=== PATIENT | female | born 1945 | race Caucasian/White ===

== ENCOUNTER → 2016-11-03 | Outpatient (CLI) | payer MEDICARE ==
[2016-02-28 22:10] VITALS: BP 163/72
[~2016-11-03] MED LIST: ASPI81TA2 PO; CITA20TA9 PO; CLOP75TA PO; CRESTOR10 MG PO; DIGO0.12 PO; EDOX60TA PO; ESTR0.62 PO; HYDR-971 PO; LATA2.5D3 EACHEYE; LISI2.5T PO; METO25TA9 PO; RANI150C PO; SUMA100T3 PO; TRAZ50TA15 PO
--- NOTE | 2016-11-03 15:52 | CARD ---
APPROVED REPORT EXAM: Two-dimensional and M-mode echocardiogram with Doppler and color Doppler. Other Information Quality : Average Rhythm : Bradycardia INDICATION Atrial Fibrillation 2D DIMENSIONS RVDd3.5 (2.9-3.5cm)Left Atrium(2D)4.0 (1.6-4.0cm) IVSd1.0 (0.7-1.1cm)Aortic Root(2D)3.1 (2.0-3.7cm) LVDd5.2 (3.9-5.9cm)LVOT Diameter2.1 (1.8-2.4cm) PWd1.0 (0.7-1.1cm)LVDs3.1 (2.5-4.0cm) FS (%) 31.2 %SV93.3 ml LVEF(%)61.6 (>50%) Aortic Valve AoV Peak Parviz.142.8cm/sAoV VTI32.0cm AO Peak GR.8.2mmHgLVOT Peak Parviz.116.1cm/s LVOT VTI 27.34cmAO Mean GR.4mmHg ANISHA (VMAX)2.63sp8AXA (VTI)3.10cm2 Mitral Valve MV E Fkonrwvw897.1cm/sMV DECEL OKXT048dk MV A Dqrvdtkv41.7cm/sMV E Mean Gr.1mmHg MV AQP86chP/A Ratio1.8 MV A Nvkphinm893qtERV (PHT)3.63cm2 TDI E/Lateral E'8.3E/Medial E'8.5 Pulmonary Valve PV Peak Pwfmidih363.3cm/sPV Peak Grad.6mmHg RVOT VTI22.5cm Tricuspid Valve TR P. Feoskenl343pi/sRAP YIHMUHPW3rwTn TR Peak Gr.93xiJjZRWB46gpPb Pulmonary Vein S1 Mhvzyvhl98.2cm/sD2 Yozinmej73.4cm/s LEFT VENTRICLE The left ventricle is normal size. There is normal left ventricular wall thickness. Left ventricle sy stolic function is normal. The Ejection Fraction is 60-65%. There is normal LV segmental wall motion. The left ventricular diastolic function and filling is normal for age. RIGHT VENTRICLE The right ventricle is normal size. The right ventricular systolic function is normal. ATRIA The left atrium size is normal. The right atrium size is normal. The interatrial septum is intact wit h no evidence for an atrial septal defect or patent foramen ovale as noted on 2-D or Doppler imaging. AORTIC VALVE The aortic valve is normal in structure and function. The aortic valve is trileaflet. Doppler and Col or Flow revealed no significant aortic regurgitation. There is no significant aortic valvular stenosi s. MITRAL VALVE The mitral valve leaflets are thickened. There is no mitral valve stenosis. Doppler and Color Flow re vealed mild mitral regurgitation. TRICUSPID VALVE The tricuspid valve is normal in structure and function. Doppler and Color Flow revealed mild tricusp id regurgitation. The PA pressure was estimated at 36 mmHg. There is no tricuspid valve stenosis. PULMONIC VALVE The pulmonic valve is not well visualized. Doppler and Color Flow revealed trace to mild pulmonic lydia vular regurgitation. There is no pulmonic valvular stenosis. GREAT VESSELS The aortic root is normal in size. Normal pulmonary venous flow (Doppler). The IVC is normal in size and collapses >50% with inspiration. PERICARDIAL EFFUSION There is no evidence of significant pericardial effusion. Critical Notification Critical Value: No <Conclusion> Left ventricle systolic function is normal. The Ejection Fraction is 60-65%. There is normal LV segmental wall motion. Mld mitral regurgitation. Mld tricuspid regurgitation. The PA pressure was estimated at 36 mmHg. There is no evidence of significant pericardial effusion.
== END | disposition home or self-care (01) ==
LOC: ECHO 10:52
PROVIDERS: ATTEND Internal Medicine Cardiovascular Disease
DX: I48.91 Unspecified atrial fibrillation (principal); I08.1 Rheumatic disorders of both mitral and tricuspid valves
CPT/HCPCS: 93306

== ENCOUNTER → 2017-02-21 | Outpatient (CLI) | payer BC ==
[2016-02-28 22:10] VITALS: BP 163/72
[~2017-02-21] MED LIST changes: +ASPI-630 PO; -ASPI81TA2 PO
--- NOTE | 2017-02-21 16:06 | RAD ---
DATE: 02/21/2017 EXAM: MAMMO MIRNA SCREENING BILATERAL Bilateral digital screening mammography to include digital breast tomosynthesis (3D mammography) HISTORY: Screening study. COMPARISON: 06/29/2015 This study was interpreted with the benefit of Computerized Aided Detection (CAD). FINDINGS: Digital MLO and CC mammograms of both breasts were obtained. Additionally digital breast tomosynthesis (3D mammography) images of both breasts in the MLO and CC projections were performed. Comparison study is dated 06/29/2015. The breast parenchyma is heterogeneously dense which can obscure a lesion on mammography (breast density code C). No spiculated mass is seen. No malignant appearing calcification or area of architectural distortion is noted. Digital breast tomosynthesis images demonstrate no spiculated mass or malignant appearing calcification. Since the previous examination there has been no significant interval change. IMPRESSION: BI-RADS Category 1, negative. There is no mammographic evidence of malignancy. Routine yearly screening mammography is recommended for follow-up. BI-RADS CATEGORY: 1 NEGATIVE RECOMMENDED FOLLOW-UP: 12M 12 MONTH FOLLOW-UP PQRS compliance statement: Patient information was entered into a reminder system with a target due date 02/21/2018 for the next mammogram. Mammography is a sensitive method for finding small breast cancers, but it does not detect them all and is not a substitute for careful clinical examination. A negative mammogram does not negate a clinically suspicious finding and should not result in delay in biopsying a clinically suspicious abnormality. "Our facility is accredited by the [employer] Mammography Program."
== END | disposition home or self-care (01) ==
LOC: KCIC MAMMO 12:57
PROVIDERS: ATTEND Family Medicine
DX: Z12.31 Encounter for screening mammogram for malignant neoplasm of breast (principal)
CPT/HCPCS: 77063; G0202; 77067

== ENCOUNTER → 2017-11-08 | Outpatient (CLI) | payer BC | END | disposition home or self-care (01) | LOC: KCIC 15:34 | DX: J43.9 Emphysema, unspecified (principal); I11.0 Hypertensive heart disease with heart failure; I50.33 Acute on chronic diastolic (congestive) heart failure; E78.5 Hyperlipidemia, unspecified | CPT/HCPCS: 71046 ==

== ENCOUNTER → 2017-11-20 | Outpatient (CLI) | payer BC | END | disposition home or self-care (01) | LOC: ECHO 10:52 | DX: I36.1 Nonrheumatic tricuspid (valve) insufficiency (principal); I37.1 Nonrheumatic pulmonary valve insufficiency; I11.0 Hypertensive heart disease with heart failure; I50.33 Acute on chronic diastolic (congestive) heart failure; E78.5 Hyperlipidemia, unspecified; J44.1 Chronic obstructive pulmonary disease with (acute) exacerbation | CPT/HCPCS: 93306 ==

== ENCOUNTER 2018-02-26 06:16 | Observation (INO) | payer BC ==
[~2018-02-26] VITALS: Ht 175.3 cm; Wt 88.5 kg
[~2018-02-26 06:16] MED LIST changes: +AMIO200T4 PO; +BACITRACIN 50,000 UNIT in IV NORMAL SALINE 250ML 250 ML IRR ONE; +CHOL10003 PO; +DORZ10DR7 EACHEYE; +LEVO500T59 PO; +METO-239 PO; -METO25TA9 PO; +PRED20TA PO; +PROAIR HFA8.5 GM INH; +RIVA10TA PO; +TRAZ-85 PO; -TRAZ50TA15 PO
[2018-02-26] MEDS ORDERED: RANI150T2 PO (07:04)
[2018-02-26 07:21] LABS: HEMATOCRIT 39.8 % (36.0-47.0); HEMOGLOBIN 13.2 g/dL (12.0-15.5); RED BLOOD COUNT 4.44 x10^6/uL (3.50-5.40); RED CELL DISTRIBUTION WIDTH 17.6 % (11.5-14.5); WHITE BLOOD COUNT 4.5 x10^3/uL (4.0-11.0)
[2018-02-26 07:23] LABS: CALCIUM 9.4 mg/dL (8.5-10.1); GFR 54.3; POTASSIUM 4.2 mmol/L (3.5-5.1)
[2018-02-26 07:30] VITALS: BP 198/73
[2018-02-26 07:49] LABS: PROTHROMBIN TIME PATIENT 12.7 SEC (11.7-14.0)
[2018-02-26 07:50] VITALS: BP 187/74
[2018-02-26] MEDS ORDERED: LIDOCAINE 2%/EPI 1:100,000 20 ML VIAL. ONE (08:12)
[2018-02-26] MEDS ORDERED: fentaNYL PF VIAL 250 MCG/5 ML VIAL ONE (08:15)
[2018-02-26] MEDS ORDERED: MIDAZOLAM HCL/PF 5 MG/5 ML VIAL. ONE (08:15)
--- NOTE | 2018-02-26 08:52 | EKG ---
[facility] [address] [place] [address] Test Date: 2018-02-26 Test Time: 07:55:46 Pat Name: ITALO NEW Department: Room: 254 1 Gender: F Rehabilitation Teacher: ESTUARDO : 1945 Requested By: TONE IJMENEZ Order Number: [id number] Reading MD: Aryan Corrales MD Measurements Intervals [place] Rate: 54 P: 90 TN: 232 QRS: 13 QRSD: 76 T: 19 QT: 460 QTc: 438 Interpretive Statements SINUS RHYTHM PROLONGED TN INTERVAL Electronically Signed On 03-01-2018 15:13:51 CDT by Aryan Corrales MD
[2018-02-26] MEDS ORDERED: LIDOCAINE 2%/EPI 1:100,000 20 ML VIAL. IJ ONE (09:00)
[2018-02-26] MEDS ORDERED: fentaNYL PF VIAL 250 MCG/5 ML VIAL IV ONE (09:00)
[2018-02-26] MEDS ORDERED: MIDAZOLAM HCL/PF 5 MG/5 ML VIAL. IV ONE (09:00)
[2018-02-26 09:29] VITALS: BP 161/71
[2018-02-26] MEDS ORDERED: NO ANTICOAGULANT THERAPY. MC PRN (09:45)
--- NOTE | 2018-02-26 09:45 | PDOC ---
MODERATE SEDATION ASSESSMENT RISKS/ALTERNATIVES Risks/Alternatives Risks and alternatives of this type of sedation and procedure discussed with: RISK/ALTERNATIVES: Patient H & P ON CHART H & P H & P on chart and reviewed for co-morbid conditions and appropriate labs. H&P ON CHART: Yes STATUS PREG STATUS ASSESSED: N/A MEDS/ALLERGIES REVIEWED Meds/Allergies Reviewed Medications and Allergies including time and route of recently administered narcotics and sedatives. MEDS/ALLERGIES REVIEWED: Yes ASA RATING ASA RATING: II AIRWAY ASSESSMENT Airway Assessment Airway patency, oral function limitations, presence of caps, crowns, dentures, partials, and ability to extend neck assessed. AIRWAY ASSESSMENT: Yes MALLAMPATI SCORE MALLAMPATI SCORE: II PRE-SEDATION ASSESSMENT PRE-SEDATION ASSESSMENT: Yes TONE JIMENEZ MD Feb 26, 2018 09:45
--- NOTE | 2018-02-26 09:54 | CARD ---
MR#: [id number] Date of Study: 02/26/2018 Ordering Physician: TONE AMEZQUITA, Referring Physician: TONE AMEZQUITA Tech: RT Kristine (R) APPROVED REPORT PROCEDURES Successful implantation of [employer] Alexander's dual-chamber permanent pacemaker INDICATIONS Symptomatic sick sinus syndrome with significant pauses PROCEDURE After explaining the risks, benefits, and alternative options, informed consent was obtained from the patient. The patient was brought to the cardiac catheterization lab and the left chest and shoulder were prepp ed and draped in a sterile manner. 30 mL of 2% lidocaine was infiltrated into the skin and subcutaneous tissues for local anesthesia. An incision was made over the left infraclavicular fossa and using blunt dissection and cautery a pocke t was created. Venous access was obtained in the left subclavian vein and 10 and 8 Montserratian sheaths ins erted. A [employer] Alexander's bipolar active fixation right ventricular lead model Tendril MRI serial number [id number] was advanced under fluoroscopy guidance and the tip was positioned in the right ventricular apex. Subsequently, a [employer] Alexander[employer] bipolar active fixation right atrial lead model Tendril MRI, serial number [id number] was positioned in the right atrial appendage under fluoroscopy guidance. The leads were s ecured into place and attached to a [employer] Alexander[employer] dual-chamber permanent pacemaker generator model Assur ity MRI 2272, serial number [id number]. This was placed in the pocket that was subsequently closed in 3 layers. Hemostasis was secured. At the end of procedure, the right ventricular lead showed a sensing amplitude off 6.1 millivolts, im pedance of 610 ohms and a threshold of 0.75 V. The right atrial lead showed sensing amplitude of 5 mV , impedance of 540 ohms and a threshold of 0.75 V. Patient tolerated the procedure well. There were n o immediate complications. CONCLUSION Successful implantation of [employer] Alexander's dual-chamber permanent pacemaker for symptomatic sick sinus syn drome Signed by : Tone Amezquita, Electronically Approved : 02/26/2018 09:53:09
--- NOTE | 2018-02-26 10:26 | RAD ---
EXAM: CHEST 1 VIEW History: Post pacemaker placement COMPARISON: 11/08/2017 TECHNIQUE: Single portable radiograph of the chest FINDINGS: The cardiac silhouette is unremarkable. Mild prominent appearing bilateral digital lung markings likely chronic interstitial changes. Left-sided pacer is identified. No pneumothorax. Impression: 1. Left-sided pacer identified. No pneumothorax. Electronically signed by: Manolo Dai MD (02/26/2018 10:23 AM) [id number]
[2018-02-26] MEDS ORDERED: NON FORMULARY ITEM (Albuterol Sulfate (Proair Hfa Inhaler) 2 PUFF) INH PRN (13:15)
[2018-02-26] MEDS ORDERED: ALBUTEROL SULFATE 2.5 MG/3 ML NEBU. NEB PRN (13:45)
[2018-02-26 15:00] VITALS: BP 106/54
[2018-02-26] MEDS: ASPIRIN CHEWABLE 81 MG TABLET. PO SCH (16:48)
[2018-02-26] MEDS: CITALOPRAM 20 MG TABLET. PO SCH (16:49)
[2018-02-26] MEDS: CHOLECALCIFEROL (VITAMIN D3) 1,000 UNIT TABLET PO SCH (16:49)
[2018-02-26] MEDS: CLOPIDOGREL BISULFATE 75 MG TABLET PO SCH (16:49)
[2018-02-26 19:35] VITALS: BP 168/75
[2018-02-26] MEDS: DORZOLAMIDE 2% OPHTH SOLUTION 10ML BOTTLE. OU SCH (20:42)
[2018-02-26] MEDS: FAMOTIDINE 20 MG TABLET. PO SCH (20:42)
[2018-02-26] MEDS: TIMOLOL 0.5% OPHTH SOLUTION 5ML BOTTLE. OU SCH (20:43)
[2018-02-26] MEDS ORDERED: traZODone 50 MG TABLET. PO SCH (21:00)
[2018-02-26] MEDS ORDERED: LATANOPROST 0.005% OPHTH SOLUTION 2.5ML BOTTLE. OU SCH (21:00)
[2018-02-26] MEDS ORDERED: RIVAROXABAN 10 MG TABLET. PO SCH (21:00)
[2018-02-26 23:00] VITALS: BP 108/55
[2018-02-27 03:10] VITALS: BP 120/58
[2018-02-27 07:00] VITALS: BP 129/60
[2018-02-27] MEDS: ASPIRIN CHEWABLE 81 MG TABLET. PO SCH (08:38)
[2018-02-27] MEDS: CITALOPRAM 20 MG TABLET. PO SCH (08:38)
[2018-02-27] MEDS: FAMOTIDINE 20 MG TABLET. PO SCH (08:38)
[2018-02-27] MEDS: CLOPIDOGREL BISULFATE 75 MG TABLET PO SCH (08:38)
[2018-02-27] MEDS: DORZOLAMIDE 2% OPHTH SOLUTION 10ML BOTTLE. OU SCH (08:39)
[2018-02-27] MEDS: CHOLECALCIFEROL (VITAMIN D3) 1,000 UNIT TABLET PO SCH (08:39)
[2018-02-27] MEDS: TIMOLOL 0.5% OPHTH SOLUTION 5ML BOTTLE. OU SCH (08:39)
[2018-02-27 11:00] VITALS: BP 118/61
--- NOTE | 2018-02-27 12:52 | RAD ---
EXAM: PA and lateral views of the chest DATE: 02/27/2018 8:50 AM INDICATION: 1 DAY POST PACEMAKER COMPARISON: No Prior FINDINGS: Cardiac generator pack is in stable position with leads projecting over the right atrium and ventricle, also stable. Chest wall deformity is unchanged. Mediastinal and hilar contours are stable. No focal parenchymal airspace opacity. No pleural effusion or pneumothorax. IMPRESSION: Stable left chest pacemaker without pneumothorax. No focal parenchymal airspace opacity. Electronically signed by: Mariusz Galeana MD (02/27/2018 12:49 PM) [facility]
--- NOTE | 2018-02-27 13:50 | PDOC3 ---
URMILA CAST RECOVERY OPERATOR HELPER 02/27/18 1350: Discharge Summary Visit Information Date of Admission: Feb 26, 2018 Date of Discharge: Feb 27, 2018 Admitting Diagnosis: Symptomatic SB with significant pauses Final Diagnosis Symptomatic SB: S/P dual chamber pacemaker placement. Brief Hospital Course Allergies Allergies Coded Allergies Type Severity Reaction Last Updated Verified nickel Allergy Intermediate "metal", rash 01/12/16 No rosuvastatin Allergy Intermediate 02/26/18 Yes lisinopril Adverse Reaction Intermediate cough 02/26/18 Yes Vital Signs Vital Signs Date Time Temp Pulse Resp B/P (MAP) Pulse Ox O2 Delivery O2 Flow Rate FiO2 02/27/18 11:00 97.7 62 18 118/61 (80) 93 Room Air 97.7 02/26/18 11:50 2.0 Lab Results Laboratory Tests Test 02/26/18 07:00 White Blood Count 4.5 x10^3/uL (4.0-11.0) Red Blood Count 4.44 x10^6/uL (3.50-5.40) Hemoglobin 13.2 g/dL (12.0-15.5) Hematocrit 39.8 % (36.0-47.0) Mean Corpuscular Volume 90 fL (79-100) Mean Corpuscular Hemoglobin 30 pg (25-35) Mean Corpuscular Hemoglobin Concent 33 g/dL (31-37) Red Cell Distribution Width 17.6 % (11.5-14.5) Platelet Count 138 x10^3/uL (140-400) Prothrombin Time 12.7 SEC (11.7-14.0) Prothromb Time International Ratio 1.0 (0.8-1.1) Activated Partial Thromboplast Time 30 SEC (24-38) Sodium Level 137 mmol/L (136-145) Potassium Level 4.2 mmol/L (3.5-5.1) Chloride Level 102 mmol/L (98-107) Carbon Dioxide Level 32 mmol/L (21-32) Anion Gap 3 (6-14) Blood Urea Nitrogen 20 mg/dL (7-20) Creatinine 1.0 mg/dL (0.6-1.0) Estimated GFR (Cockcroft-Gault) 54.3 Glucose Level 91 mg/dL (70-99) Calcium Level 9.4 mg/dL (8.5-10.1) Brief Hospital Course Ms. Osman is a 72 yo female admitted for planned pacemaker placement due to symptomatic bradycardia with significant pauses. Successful implantation of [employer] Alexander's dual-chamber permanent pacemaker was achieved. Pt tolerated procedure well. Overnight her status has been unremarkable. Denies any surgical discomfort, no SOA or CP. VSS, no complications in relation to pacemaker placement. Follow up interrogation revealed normal functioning device. Left chest surgical incision site intact with mild pinkish erythema, no swelling, drain and incision is well approximated with steristrips. Neurovascular status to LUE intact, sling in place. Discussed post pacemaker DC instructions. Maintain SR with underlying hx of PAFIB. Known for CAD, past NICM, COPD which are all stable. Continue with home medications including xarelto. Discharge Information Condition at Discharge: Stable Follow Up: Weeks (follow up in 2 weeks in office for wound check. ) Disposition/Orders: D/C to Home Scheduled Aspirin (Aspirin) 81 Mg Tab.chew, 81 MG PO DAILY, #30 Ref 3 (Reported) Entered as Reported by: SHASHANK SERVIN on 11/27/15 1058 Last Action: Continued on 02/26/18 1303 by LISA LYLE Cholecalciferol (Vitamin D3) (Vitamin D3) 1,000 Unit Tablet, 1,000 MG PO DAILY, (Reported) Entered as Reported by: Brenda Charles on 07/21/17 180 Last Action: Continued on 02/26/18 1303 by LISA LYLE Citalopram Hydrobromide (Celexa) 20 Mg Tablet, 20 MG PO DAILY, #90 Ref 3 ( Reported) Entered as Reported by: SHASHANK SERVIN on 11/27/15 1058 Last Action: Continued on 02/26/18 1303 by LISA LYLE Clopidogrel Bisulfate (Clopidogrel) 75 Mg Tablet, 75 MG PO DAILY, #90 Ref 1 ( Reported) Entered as Reported by: KASANDRA BIANCHI on 01/11/16 1125 Last Action: Continued on 02/26/18 1303 by LISA LYLE Dorzolamide Hcl/Timolol Maleat (Dorzolamide-Timolol Eye Drops) 10 Ml Drops, 1 DROP EACHEYE BID, #10 Ref 6 (Reported) Entered as Reported by: Brenda Charles on 07/21/171803 Last Action: Converted on 02/26/181302 by LISA LYLE Latanoprost (Latanoprost) 2.5 Ml Drops, 1 DROP EACHEYE QHS, #2.5 Ref 6 (Reported ) Entered as Reported by: SHASHANK SERVIN on 11/27/151057 Last Action: Converted on 02/26/18 130 by LISA LYLE Ranitidine Hcl (Ranitidine Hcl) 150 Mg Tablet, 150 MG PO BID, (Reported) Entered as Reported by: WESLEY RICO on 02/26/18 0704 Last Action: Converted on 02/26/181302 by LISA LYLE Rivaroxaban (Xarelto) 10 Mg Tablet, 10 MG PO QHS, (Reported) Entered as Reported by: Brenda Charles on 07/21/171803 Last Taken: Unknown Dose on 02/23/18 Last Action: Continued on 02/26/181302 by LISA LYLE Rivaroxaban (Xarelto) 20 Mg Tablet, 20 MG PO DAILY, (Reported) Entered as Reported by: MARGARITA BROOKS on 02/27/18 1452 Trazodone Hcl (Trazodone Hcl) 50 Mg Tablet, 50 MG PO QHS, #30 Ref 1 (Reported) Entered as Reported by: SHASHANK SERVIN on 11/27/151057 Last Action: Continued on 02/26/181302 by LISA LYLE Scheduled PRN Albuterol Sulfate (Proair Hfa Inhaler) 8.5 Gm Hfa.aer.ad, 2 PUFF INH PRN Q6HRS PRN for SHORTNESS OF BREATH for 30 Days, Ref 0 Prescribed by: BUBBA GEORGE on 07/24/17 0809 Last Action: Converted on 02/26/181302 by LISA LYLE Sumatriptan Succinate (Imitrex) 100 Mg Tablet, 100 MG PO PRN DAILY PRN for MIGRAINE HEADACHE, #9 Ref 1 (Reported) Entered as Reported by: SHASHANK SERVIN on 11/27/151057 Last Action: HELD on 02/26/181302 by LISA LYLE Patient Instructions Patient Instructions Must know & what to expect after device implant: 1. Your surgical dressing should be removed prior to discharge from the hospital, but allow the steri- strips to fall off naturally. 2. Activity restrictions: DO NOT raise arm above shoulder level, lift anything heavier than a gallon of milk, and no push or pull motions such as vacuuming/lawn mowing, no swinging motions (golf), etc for 4 weeks. 3. It is OK to use a cell phone or other electronic devices just be sure you do not store it in a breast pocket on the side where the device was placed. 4. Device will be interrogated prior to your discharge from the hospital and then every 3 months for defibrillators and every 6 months for pacemakers. You may be asked to have your device checked remotely from home as well, but this will depend on your particular physicians preference. 5. You may remove the arm immobilizer the day after device placement. Wear the arm immobilizer/splint at night (during sleep times) for 2 week to prevent unintended arm movement that can cause lead dislodgement. 6. Do not drive for one week as the task of driving may lead to unintended arm motion that may cause lead dislodgement. The seatbelt will also rub against the incision site & cause irritation. 7. It is our recommendation that you utilize Tylenol at home for pain control. You need to call our office if you are having uncontrollable pain at the incision site. 8. Keep your incision clean and dry. It is OK to shower. DO NOT submerge in bath, pool, or hot tub, until cleared by your doctor, as this could lead to increase risk of infection.. It is OK to use regular soap just do not scrub the incision site. Water spray from shower should not directly hit the incision. Be sure to blot dry not rub. 9. Inspect your incision daily. If you notice any increased redness, swelling , or drainage, or if you start running a fever, call the office immediately. The number is [phone]. 10. For women, if you need to protect against irritation from the bra straps, you can place a piece of gauze over the incision site for cushion. Please be sure to tape it loosely to allow air to the site & remove the gauze when you remove the bra. 11. Be sure to carry your device identification information card in your wallet/purse at all times. 12. It is OK to go through security at the airport with your device, but be sure to let the TSA know prior to proceeding as the security settings change depending on varying factors. Please do whatever is requested by security at that time. 13. Some of the newer devices may be MRI compatible but, currently, the use of these devices is not widespread, so you likely will not be able to have an MRI. Please clarify this with your physician. If at any time, you feel lightheaded or dizzy/faint, stop what you are doing & lie down immediately. If you are driving, get to the side of the road quickly, turn your car off & call 911 on your cell phone. DO NOT continue to drive as this may cause an accident that seriously injures yourself &/or others. Call the office at [phone] for any questions or concerns. TONE JIMENEZ MD 02/27/18 1524: Discharge Summary Brief Hospital Course Brief Hospital Course Patient seen and examined. Agree with CLOTH PATTERN MAKER's assessment and plan. Patient underwent successful permanent pacemaker implantation yesterday for sick sinus syndrome and significant pauses. She was hemodynamically stable and symptom- free during her hospital stay. Chest x-ray did not show any pneumothorax and device check prior to discharge showed normal function. She will follow-up with our office in 2 weeks for wound check. URMILA CAST APRN Feb 27, 2018 13:50 TONE JIMENEZ MD Feb 27, 2018 15:24
[2018-02-27] MEDS ORDERED: RIVA20TA2 PO (14:52)
[2018-02-27] MEDS ORDERED: RIVAROXABAN 10 MG TABLET. PO SCH (17:00)
== END 2018-02-27 16:20 | disposition home or self-care (01) ==
LOC: CCL 06:16 → INTOOBSV 08:12 → 2 SOUTH 08:12
PROVIDERS: ADMIT Internal Medicine Cardiovascular Disease; ATTEND Internal Medicine Cardiovascular Disease
DX: I49.5 Sick sinus syndrome (principal); I25.10 Atherosclerotic heart disease of native coronary artery without angina pectoris; I42.9 Cardiomyopathy, unspecified; J44.9 Chronic obstructive pulmonary disease, unspecified; Z79.899 Other long term (current) drug therapy
CPT/HCPCS: 33208; 36415; 71045; 71046; 80048; 85027; 85610; 85730; 93005; 96365; 96366; 96375; C1785; C1898; G0378; G0379; J0690; J2250; J3010; J3490; J7050; 99152; 99153; J7030

== ENCOUNTER → 2018-07-03 | Outpatient (CLI) | payer BC ==
[~2018-07-03] MED LIST changes: -BACITRACIN 50,000 UNIT in IV NORMAL SALINE 250ML 250 ML IRR ONE; +HYDR-3164 PO; -HYDR-971 PO; +RANI150T2 PO; +RIVA20TA2 PO
--- NOTE | 2018-07-03 10:49 | KCIC ---
EXAM: Bilateral digital screening mammogram with tomosynthesis. HISTORY: 73-year-old female presents for screening mammography. TECHNIQUE: Full-field digital craniocaudal and mediolateral oblique 2D and 3D tomosynthesis images of both breasts are obtained for evaluation. Computer aided detection with CubeSensorsD software version 9.3 was applied. COMPARISON: 02/21/2017 BREAST PARENCHYMAL DENSITY: Level C - Heterogeneously dense. FINDINGS: There is no new suspicious mass, microcalcification or region of architectural distortion. IMPRESSION: BI-RADS Category 2: Benign finding(s). RECOMMENDATION: Annual mammography is recommended. If your mammogram demonstrates that you have dense breast tissue, which could hide abnormalities, and if you have other risk factors for breast cancer that have been identified, you might benefit from supplemental screening tests that may be suggested by your ordering physician. Dense breast tissue, in and of itself, is a relatively common condition. This information is not provided to cause undue concern, but rather to raise your awareness and to promote discussion with your physician regarding the presence of other risk factors, in addition to dense breast tissue. A report of your mammography results will be sent to you and your physician. You should contact your physician if you have any questions or concerns regarding this report. Mammography is a sensitive method for finding small breast cancers, but it does not detect them all and is not a substitute for careful clinical examination. A negative mammogram does not negate a clinically suspicious finding and should not result in delay in biopsying a clinically suspicious abnormality. PQRS compliance statement - Patient information was entered into a reminder system with a target due date for the next mammogram. "Our facility is accredited by the [employer] Mammography Program." Electronically signed by: Sherrell Kim MD (07/03/2018 10:45 AM) [id number]
== END | disposition home or self-care (01) ==
LOC: KCIC MAMMO 09:21
PROVIDERS: ATTEND Family Medicine
DX: Z12.31 Encounter for screening mammogram for malignant neoplasm of breast (principal)
CPT/HCPCS: 77063; 77067

== ENCOUNTER → 2018-12-04 | Outpatient (CLI) | payer BC ==
[~2018-12-04] MED LIST changes: +ALBU2.5V8 INH; -PROAIR HFA8.5 GM INH; +TRAZ-118 PO; -TRAZ-85 PO
--- NOTE | 2018-12-04 12:38 | CARD ---
MR#: [id number] Date of Study: 12/04/2018 Ordering Physician: TONE JIMENEZ, Referring Physician: Yoli HERNANDEZ: Yanelis Clemens RDCS APPROVED REPORT EXAM: Two-dimensional and M-mode echocardiogram with Doppler and color Doppler. Other Information Quality : Good INDICATION Atrial Fibrillation Pacemaker 2D DIMENSIONS RVDd2.8 (2.9-3.5cm)Left Atrium(2D)3.6 (1.6-4.0cm) IVSd0.9 (0.7-1.1cm)Aortic Root(2D)3.4 (2.0-3.7cm) LVDd4.6 (3.9-5.9cm)LVOT Diameter2.2 (1.8-2.4cm) PWd0.9 (0.7-1.1cm)LVDs3.5 (2.5-4.0cm) FS (%) 23.3 %SV45.5 ml LVEF(%)46.6 (>50%) Aortic Valve AoV Peak Parviz.87.0cm/sAoV VTI11.0cm AO Peak GR.3.0mmHgLVOT Peak Parviz.77.3cm/s AO Mean GR.2mmHgAVA (VMAX)3.37cm2 Tricuspid Valve TR P. Xhmxulok112ft/sRAP UKOZUQIA6isKz TR Peak Gr.56hhEnWYTF92noAj Pulmonary Vein S1 Rlzutjtq10.9cm/sD2 Jyqwrhjm99.9cm/s LEFT VENTRICLE The left ventricle is normal size. There is normal left ventricular wall thickness. Left ventricle sy stolic function is low normal. The Ejection Fraction is 50%. Apical motion consistent with pacemaker activation. RIGHT VENTRICLE The right ventricle is normal size. The right ventricular systolic function is normal. There is a pac emaker lead in the right ventricle. ATRIA The left atrium size is normal. The right atrium size is normal. A pacemaker is seen in the right atr ium consistent with history. The interatrial septum is intact with no evidence for an atrial septal d efect or patent foramen ovale as noted on 2-D or Doppler imaging. AORTIC VALVE The aortic valve is calcified but opens well. Doppler and Color Flow revealed no significant aortic r egurgitation. There is no significant aortic valvular stenosis. MITRAL VALVE The mitral valve is calcified but opens well. A mild mitral valve prolapse is present. There is no mi tral valve stenosis. Doppler and Color-flow revealed mild eccentric mitral regurgitation. TRICUSPID VALVE The tricuspid valve is normal in structure and function. Doppler and Color Flow revealed mild tricusp id regurgitation. The PA pressure was estimated at 29 mmHg. There is no tricuspid valve stenosis. PULMONIC VALVE The pulmonary valve is normal in structure and function. Doppler and Color Flow revealed mild pulmoni c valvular regurgitation. There is no pulmonic valvular stenosis. GREAT VESSELS The aortic root is normal in size. The ascending aorta is mildly dilated at 3.5 cm. The IVC is normal in size and collapses >50% with inspiration. PERICARDIAL EFFUSION There is no evidence of significant pericardial effusion. Critical Notification Critical Value: No <Conclusion> Left ventricle systolic function is low normal. The Ejection Fraction is 50%. Apical motion consistent with pacemaker activation. There is a pacemaker lead in the right atrium and right ventricle. Mild eccentric mitral regurgitation. Mild tricuspid regurgitation. The PA pressure was estimated at 29 mmHg. There is no evidence of significant pericardial effusion. Signed by : Tone Jimenez, Electronically Approved : 12/04/2018 12:37:39
== END | disposition home or self-care (01) ==
LOC: ECHO 10:15
PROVIDERS: ATTEND Internal Medicine Cardiovascular Disease
DX: I08.8 Other rheumatic multiple valve diseases (principal); I48.91 Unspecified atrial fibrillation; Z95.1 Presence of aortocoronary bypass graft
CPT/HCPCS: 93306

== ENCOUNTER → 2018-12-04 | Outpatient (CLI) | payer BC ==
--- NOTE | 2018-12-04 21:56 | RAD ---
MR#: [id number] Date of Study: 12/04/2018 Ordering Physician: TONE JIMENEZ, Referring Physician: TONE JIMENEZ, Tech: Howard Spencer MBA, RDMS, RVT, RDCS, RTR APPROVED REPORT Patient Location : OUT-PATIENT Indications Lower Extremity Pain : Bilateral Greater Saphenous Veins (GSV) Significant venous relux noted in the LEFT GSV at the following levels : Superficial Femoral Junction , Proximal Thigh, Mid Thigh, , Distal Thigh, Proximal Calf, Mid Calf, Distal Calf Lesser Saphenous Veins (LSV) Significant venous reflux is noted in the Left LSV. Findings Grayscale images of the right greater saphenous vein do not reveal any obvious evidence of thrombus. Spectral waveforms do not reveal any evidence of reflux. The right great saphenous vein measures 7.1 mm. The left great saphenous vein measures 5.9 mm and has a maximum reflux time of 2.9 seconds. The left lesser saphenous vein measures 3.2 mm and has a maximum reflux time of 2 seconds. Critical Notification Critical Value: No <Conclusion> 1. Positive for reflux in the left greater and lesser saphenous veins. No evidence of reflux in the r ight greater and lesser saphenous veins. Signed by : Aryan Corrales, Electronically Approved : 12/04/2018 21:56:15
== END | disposition home or self-care (01) ==
LOC: US 10:18
PROVIDERS: ATTEND Internal Medicine Cardiovascular Disease
DX: M79.605 Pain in left leg (principal); M79.604 Pain in right leg
CPT/HCPCS: 93970

== ENCOUNTER → 2019-01-08 | Day surgery (SDC) | payer BC ==
[~2019-01-08] MED LIST changes: +CALC-98 PO; +IRON PO; +IV RINGERS,LACTATED 1000ML 1,000 ML IV SCH; +PROPOFOL 20 ML IV ONE
--- NOTE | 2019-01-08 14:26 | EKG ---
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
[2019-01-08 14:43] LABS: HEMATOCRIT 39.1 % (36.0-47.0); HEMOGLOBIN 12.7 g/dL (12.0-15.5); RED BLOOD COUNT 4.11 x10^6/uL (3.50-5.40); RED CELL DISTRIBUTION WIDTH 14.6 % (11.5-14.5)
[2019-01-08 14:52] LABS: PROTHROMBIN TIME PATIENT 28.5 SEC (11.7-14.0)
[2019-01-08 15:10] LABS: CALCIUM 9.3 mg/dL (8.5-10.1); CREATININE 0.9 mg/dL (0.6-1.0); GFR 61.2
--- NOTE | 2019-01-08 15:22 | PDOC4 ---
PROCEDURE Procedure PROCEDURE External cardioversion INDICATIONS Atrial fibrillation COMPLICATIONS None PROCEDURAL DETAIL An informed consent was obtained from patient. After anesthesiology team administered intravenous propofol, patient was given 200 J of synchronized biphasic DC shock therapy with successful conversion of patient's rhythm from a trial fibrillation to atrial paced rhythm. She was hemodynamically stable without any neurological deficits at the end of procedure. She tolerated the procedure well. There were no immediate complications. Her pacemaker device will be interrogated prior to discharge. CONCLUSIONS Successful external cardioversion of patient's rhythm from atrial fibrillation to atrial paced rhythm. TONE JIMENEZ MD Jan 08, 2019 15:22
[2019-01-08 15:45] VITALS: BP 111/58
--- NOTE | 2019-01-08 15:58 | EKG ---
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
== END ==
LOC: SURG 13:23
PROVIDERS: ATTEND Internal Medicine Cardiovascular Disease
DX: I48.91 Unspecified atrial fibrillation (principal)
CPT/HCPCS: 36415; 80048; 85027; 85610; 92960; 93005; J2704

== ENCOUNTER → 2019-04-30 | Day surgery (SDC) | payer BC ==
[~2019-04-30] MED LIST changes: +BENZOCAINE ONE 20% MUCOSAL SPRAY.; +BENZOCAINE ONE 20% MUCOSAL SPRAY. MM; +LIDOCAINE 2% TOPICAL JELLY 30GM TUBE. TP ONE; +LIDOCAINE 2% TOPICAL JELLY 5GM TUBE. TP ONE; +LIDOCAINE 2% VISCOUS 15 ML SOLUTION. ONE; +LIDOCAINE 2% VISCOUS 15 ML SOLUTION. SWSW ONE
[2019-04-30 16:18] VITALS: BP 120/77
--- NOTE | 2019-05-01 08:44 | CARD ---
MR#: [id number] Date of Study: 04/30/2019 Ordering Physician: TONE AMEZQUITA, Referring Physician: Yoli HERNANDEZ: Deya Nick APPROVED REPORT EXAM: Transesophageal echocardiogram with color flow Doppler. INDICATION Pre-Op Surgery/Intervention Pacemaker: Reason For Test : Rule out Intracardiac Thrombus. PROCEDURE After obtaining informed consent, patient underwent transesophageal echo in the PACU. Type of Sedation : General Anesthesia Sedation was achieved with Propofol 80mg intravenously. Transesophageal probe was inserted and advanced into esophagus by Tone Amezquita MD. The CHAVO was performed without complications. Throughout the procedure, the blood pressure, pulse oximetry, cardiac rhythm, and rate were monitored . The patient tolerated the procedure without adverse effects. Recovery from general anesthesia was une ventful and vital signs were stable. LEFT VENTRICLE The left ventricle is normal size. There is normal left ventricular wall thickness. The left ventricu lar systolic function is low normal. The Ejection Fraction is 50%. There is normal LV segmental wall motion. Diastology not performed. RIGHT VENTRICLE The right ventricle is normal size. There is normal right ventricular wall thickness. The right ventr icular systolic function is normal. ATRIA The left atrium size is normal. The right atrium size is normal. There is a small PFO noted on Dopple r imaging, agitated contrast saline was not performed on this study. There is no thrombus noted in th e left atrial appendage. AORTIC VALVE The aortic valve is thickened but opens well. Doppler and Color Flow revealed no significant aortic r egurgitation. There is no significant aortic valvular stenosis. MITRAL VALVE The mitral valve is thickened but opens well. There is no mitral valve stenosis. Doppler and color-fl ow revealed mild to moderate eccentric mitral regurgitation. TRICUSPID VALVE The tricuspid valve is normal in structure and function. Doppler and Color Flow revealed mild tricusp id regurgitation. There is no tricuspid valve stenosis. PULMONIC VALVE The pulmonary valve is normal in structure and function. Doppler and Color Flow revealed trace pulmon ic valvular regurgitation. GREAT VESSELS The aortic root is normal in size. PERICARDIAL EFFUSION There is no evidence of significant pericardial effusion. Critical Notification Critical Value: No <Conclusion> The left ventricular systolic function is low normal. The Ejection Fraction is 50%. Pacer lead noted right atrium. Mild to moderate eccentric mitral regurgitation. Mild tricuspid regurgitation. There is a small PFO noted on Doppler imaging, agitated contrast saline was not performed on this toñito dy. There is no thrombus noted in the left atrial appendage. There is no evidence of significant pericardial effusion. Signed by : Tone Amezquita, Electronically Approved : 05/01/2019 08:44:27
== END ==
LOC: SURG 12:57
PROVIDERS: ATTEND Internal Medicine Cardiovascular Disease
DX: I48.91 Unspecified atrial fibrillation (principal); I08.1 Rheumatic disorders of both mitral and tricuspid valves; I25.2 Old myocardial infarction; I42.9 Cardiomyopathy, unspecified; J43.9 Emphysema, unspecified; K21.9 Gastro-esophageal reflux disease without esophagitis; E66.9 Obesity, unspecified; D64.9 Anemia, unspecified; H40.9 Unspecified glaucoma; F32.9 Major depressive disorder, single episode, unspecified; Z95.0 Presence of cardiac pacemaker; Z87.891 Personal history of nicotine dependence; Z98.890 Other specified postprocedural states; Z87.39 Personal history of other diseases of the musculoskeletal system and connective tissue; Z98.42 Cataract extraction status, left eye; Z98.41 Cataract extraction status, right eye; Z72.89 Other problems related to lifestyle; Z96.1 Presence of intraocular lens
CPT/HCPCS: 76376; 93312; 93320; 93325; J2704